=== PATIENT | female | born 1975 | race Caucasian/White ===

== ENCOUNTER 2018-12-02 16:16 | Emergency (ER) | payer BC, SELFPAY ==
[2018-12-02] MEDS ORDERED: Ondansetron PF 4 MG/2 ML Vial ONE (16:53)
[2018-12-02] MEDS ORDERED: Morphine 4 MG/ML VIAL ONE (16:53)
--- NOTE | 2018-12-02 16:58 | RAD ---
3 views left wrist. HISTORY: Fall from horse. AP, lateral and oblique views left wrist obtained. There is a comminuted fracture extending intra-articularly involving the distal left radius. There is also a comminuted fracture involving the distal left ulna. IMPRESSION: Comminuted intra-articular distal left radial fracture and distal ulnar fractures.
== END 2018-12-02 17:56 | disposition home or self-care (01) ==
LOC: ERS 16:16
DX: S52.572A Other intraarticular fracture of lower end of left radius, initial encounter for closed fracture (principal); S52.602A Unspecified fracture of lower end of left ulna, initial encounter for closed fracture; F32.9 Major depressive disorder, single episode, unspecified; V80.010A Animal-rider injured by fall from or being thrown from horse in noncollision accident, initial encounter; Y93.52 Activity, horseback riding
CPT/HCPCS: 29125; 96374; 96375; J2270; J2405